=== PATIENT | male | born 1990 | race Two or more races ===

== ENCOUNTER 2017-12-27 07:19 | Emergency (ER) | payer MEDICAID, OTHER ==
[~2017-12-27] VITALS: Ht 182.9 cm; Wt 111.1 kg
[2017-12-27] MEDS ORDERED: SODIUM CHLORIDE 0.9% 500 ML IV ONE (07:54)
[2017-12-27] MEDS ORDERED: HYDROmorphone HCL 2 MG/ML VL IV ONE (08:00)
[2017-12-27] MEDS ORDERED: INDOMETHACIN 25 MG CAP PO ONE (08:00)
[2017-12-27] MEDS ORDERED: ONDANSETRON HCL 4 MG/2 ML VIAL IV ONE (08:00)
[2017-12-27 08:08] LABS: Basophils # (auto) 0 uL; Basophils % (auto) 0.3 % (0.0-2.0); Eosinophils # (auto) 0.1 uL; Eosinophils % (auto) 1.1 % (0.0-7.0); Hematocrit 39.4 % (41.0-53.0); Hemoglobin 13.1 g/dL (13.5-17.5); Mean Corpuscular Hemoglobin 25.7 pg (28.0-32.0); Monocytes % (auto) 7.4 % (0.0-12.0); Platelet Count (auto) 251 10^3/uL (140-450)
[2017-12-27 08:10] LABS: Lymphocytes % (auto) 22.7 % (10.0-50.0); Mean Corpuscular Hgb Conc. 33.3 g/dL (32.0-36.0); Mean Corpuscular Volume 77.2 fL (80.0-100.0); Monocytes # (auto) 0.6 uL; Neutrophils # (auto) 5.9 uL; Neutrophils % (auto) 68.5 % (37.0-80.0); Red Cell Distribution Width 16.3 % (11.8-14.3); White Blood Cell 8.6 10^3/uL (4.4-10.8)
[2017-12-27 09:32] VITALS: BP 101/71
== END 2017-12-27 10:13 | disposition home or self-care (01) ==
LOC: ER 07:19
DX: M10.9 Gout, unspecified (principal)
CPT/HCPCS: 36415; 84550; 85025; 94761; 96374; 96375; 99284; J1170; J2405; J7030